=== PATIENT | female | born 1995 | race Caucasian/White ===

== ENCOUNTER 2017-03-05 10:08 | Emergency (ER) | payer SELFPAY ==
[~2017-03-05] VITALS: Ht 162.6 cm; Wt 59.0 kg
[~2017-03-05 10:08] MED LIST: HYDR-2766 PO; flexeril
[2017-03-05 10:20] VITALS: BP 113/64
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
[2017-03-05 11:13] LABS: BILIRUBIN,URINE NEGATIVE (NEG); GLUCOSE,URINE NEGATIVE (NEG); NITRITE,URINE NEGATIVE (NEG); PH,URINE 7.5; PROTEIN,URINE NEGATIVE (NEG-TRACE)
[2017-03-05 11:17] LABS: NEG OBC UR NEG; POS OBC UR POS
[2017-03-05 11:18] LABS: SQUAMOUS EPITHELIAL CELL,UR MANY /LPF
[2017-03-05 11:19] LABS: BACTERIA,URINE MANY /HPF (0-FEW); RBC,URINE OCC /HPF (0-2); WBC,URINE OCC /HPF (0-4)
[2017-03-05] MEDS ORDERED: CYCL10TA2 PO (11:42)
== END 2017-03-05 11:47 | disposition home or self-care (01) ==
LOC: ER 10:08
DX: M54.9 Dorsalgia, unspecified (principal)
CPT/HCPCS: 81001; 81025; 87086; 99284

== ENCOUNTER 2020-03-06 18:57 | Emergency (ER) | payer SELFPAY ==
[~2020-03-06] VITALS: Ht 162.6 cm; Wt 72.7 kg
[~2020-03-06 18:57] MED LIST changes: +CYCL10TA2 PO; -HYDR-2766 PO; +HYDR-2769 PO
[2020-03-06 20:10] LABS: BASO # 0.1 x10^3/uL (0.0-0.2); BASO % 1 % (0-3); EOS % 0 % (0-3); HEMATOCRIT 40.8 % (36.0-47.0); HEMOGLOBIN 14.1 g/dL (12.0-15.5); LYMPH # 2.3 x10^3/uL (1.0-4.8); LYMPH % 17 % (24-48); MEAN CORPUSCULAR HEMOGLOBIN 31 pg (25-35); MEAN CORPUSCULAR HGB CONC 35 g/dL (31-37); MEAN CORPUSCULAR VOLUME 91 fL (79-100); MONO # 1.4 x10^3/uL (0.0-1.1); MONO % 10 % (0-9); NEUT # 9.8 x10^3/uL (1.8-7.7); NEUT % 72 % (31-73); PLATELET COUNT 266 x10^3/uL (140-400); RED CELL DISTRIBUTION WIDTH 12.8 % (11.5-14.5); WHITE BLOOD COUNT 13.6 x10^3/uL (4.0-11.0)
[2020-03-06 20:12] LABS: CLARITY,URINE CLEAR; COLOR,URINE RED
[2020-03-06 20:17] LABS: CALCIUM 9.5 mg/dL (8.5-10.1); CREATININE 0.9 mg/dL (0.6-1.0); GFR 77.6; POTASSIUM 3.5 mmol/L (3.5-5.1)
[2020-03-06 20:17] LABS: AMPHETAMINE/METHAMPHETAMINE NEG (NEG); BARBITURATES NEG (NEG); BENZODIAZEPINES NEG (NEG); CANNABINOIDS POS (NEG); COCAINE NEG (NEG); METHADONE NEG (NEG); OPIATES NEG (NEG); PHENCYCLIDINE NEG (NEG)
[2020-03-06 20:22] LABS: AMORPHOUS SEDIMENT,UR PRESENT /HPF; BACTERIA,URINE MOD /HPF (0-FEW); TRICHOMONAS,URINE PRESENT
[2020-03-06 20:23] LABS: ALBUMIN/GLOBULIN RATIO 0.9 (1.0-1.7); TOTAL BILIRUBIN 0.8 mg/dL (0.2-1.0); TOTAL PROTEIN 8.3 g/dL (6.4-8.2)
--- NOTE | 2020-03-06 20:52 | RAD ---
PELVIS W/TV History: Reason: pelvic pain, hx of ovarian cysts / Spl. Instructions: / History: Comparison: None. Technique: Grayscale and color Doppler imaging of the pelvis was performed using transabdominal and transvaginal technique. Findings: The uterus measures 7.0 x 4.7 x 3.7 cm. Uterus has an unremarkable appearance. The endometrial stripe measures 9.5 mm. Right ovary measures 6.2 x 3.2 x 4.9 cm. Left ovary measures 4.0 x 2.7 x 2.5 cm. Normal Doppler flow to the ovaries. The ovaries lie adjacent to each other and potentially attached. Numerous bilateral follicles. Complicated right ovarian follicle measures 2.6 x 2.3 cm. Complicated left ovarian follicle measures 2.3 x 1.7 cm. Small pelvic free fluid. IMPRESSION: 1. Numerous ovarian follicles with complicated follicles bilaterally, may represent hemorrhagic follicles. 2. Small pelvic free fluid. Electronically signed by: Delmar Gibbons DO (03/06/2020 8:49 PM) [facility]
[2020-03-06] MEDS ORDERED: metroNIDAZOLE 500 MG TABLET PO ONE (21:15)
[2020-03-06] MEDS ORDERED: cefTRIAXone IV Push 1 GM VIAL. IVP ONE (21:15)
[2020-03-06] MEDS ORDERED: AZITHROMYCIN 250 MG TABLET. PO ONE (21:15)
[2020-03-06 21:16] VITALS: BP 115/70
--- NOTE | 2020-03-06 21:19 | PHYS DOC ---
Past Medical History Past Medical History: No Pertinent History (EVAN PERKINS APRN) Past Surgical History: No Surgical History (EVAN PERKINS APRN) Smoking Status: Current Every Day Smoker Additional Information: black and milds Alcohol Use: None Drug Use: None (EVAN PERKINS APRN) General Adult EDM: Chief Complaint: ABDOMINAL PAIN HPI: HPI: Patient is a 24 year old female with history of ovarian cyst presenting today complaining of 8 out of 10 sharp bilateral pelvic pain that has been going on for 3 days. Patient denies any concerns for STDs. Denies any unusual vaginal discharge, she states she started her cycle today. Denies any urgency, frequency or dysuria. Denies anything specifically exacerbating or relieving her pain. (EVAN PERKINS APRN) Review of Systems: Review of Systems: Constitutional: Denies fever or chills. [] GI: Reports pelvic pain, denies nausea, vomiting, bloody stools or diarrhea. [] : Denies dysuria. [] Musculoskeletal: Denies back pain or joint pain. [] Integument: Denies rash. [] Neurologic: Denies headache, focal weakness or sensory changes. [] Psychiatric: Denies depression or anxiety. [] (EVAN PERKINS APRN) Heart Score: Risk Factors: Risk Factors: DM, Current or recent (<one month) smoker, HTN, HLP, family history of CAD, obesity. Risk Scores: Score 0 - 3: 2.5% MACE over next 6 weeks - Discharge Home Score 4 - 6: 20.3% MACE over next 6 weeks - Admit for Clinical Observation Score 7 - 10: 72.7% MACE over next 6 weeks - Early Invasive Strategies (EVAN PERKINS APRN) Current Medications: Current Medications Medications (Trade) Dose Ordered Sig/Earl Start Time Stop Time Status Last Admin Dose Admin Azithromycin (Zithromax) 1,000 mg 1X ONCE 03/06/20 21:15 03/06/20 21:16 03/06/20 21:06 1,000 MG Ceftriaxone Sodium (Rocephin) 1 gm 1X ONCE 03/06/20 21:15 03/06/20 21:16 03/06/20 21:07 1 GM Metronidazole (Flagyl) 2,000 mg 1X ONCE 03/06/20 21:15 03/06/20 21:16 03/06/20 21:06 2,000 MG (EVAN PERKINS APRN) Allergies: Allergies: Allergies Coded Allergies Type Severity Reaction Last Updated Verified No Known Drug Allergies 03/01/15 No (EVAN PERKINS APRN) Physical Exam: PE: Constitutional: Well developed, well nourished, no acute distress, non-toxic appearance. [] Abdomen: Bowel sounds normal, soft, no tenderness, no masses, no pulsatile masses. [] Pelvic exam External pelvic appears normal, cervix is visualized, closed, no CMT, no adnexal tenderness, small amount of bright red blood in the vaginal vault consistent with menstrual cycle. Skin: Warm, dry, no erythema, no rash. [] Back: No tenderness, no CVA tenderness. [] Extremities: No tenderness, no cyanosis, no clubbing, ROM intact, no edema. [] Neurologic: Alert and oriented X 3, normal motor function, normal sensory function, no focal deficits noted. [] Psychologic: Affect normal, judgement normal, mood normal. [] (EVAN PERKINS APRN) Current Patient Data: Labs: Laboratory Tests Test 03/06/20 19:48 03/06/20 19:51 03/06/20 19:55 Urine Collection Type Unknown Urine Color Red Urine Clarity Clear Urine pH (<5.0-8.0) Urine Specific [place] 1.025 (1.000-1.030) Urine Protein mg/dL (NEG-TRACE) Urine Glucose (UA) mg/dL (NEG) Urine Ketones (Stick) mg/dL (NEG) Urine Blood (NEG) Urine Nitrite (NEG) Urine Bilirubin (NEG) Urine Urobilinogen Dipstick mg/dL (0.2 mg/dL) Urine Leukocyte Esterase (NEG) Urine RBC 11-20 /HPF (0-2) Urine WBC 11-20 /HPF (0-4) Urine Squamous Epithelial Cells Many /LPF Urine Amorphous Sediment Present /HPF Urine Bacteria Mod /HPF (0-FEW) Urine Mucus Marked /LPF Urine Trichomonas Present Urine Opiates Screen Neg (NEG) Urine Methadone Screen Neg (NEG) Urine Barbiturates Neg (NEG) Urine Phencyclidine Screen Neg (NEG) Urine Amphetamine/Methamphetamine Neg (NEG) Urine Benzodiazepines Screen Neg (NEG) Urine Cocaine Screen Neg (NEG) Urine Cannabinoids Screen Pos (NEG) Urine Ethyl Alcohol Neg (NEG) POC Urine HCG, Qualitative Hcg negative (Negative) White Blood Count 13.6 x10^3/uL (4.0-11.0) H Red Blood Count 4.50 x10^6/uL (3.50-5.40) Hemoglobin 14.1 g/dL (12.0-15.5) Hematocrit 40.8 % (36.0-47.0) Mean Corpuscular Volume 91 fL (79-100) Mean Corpuscular Hemoglobin 31 pg (25-35) Mean Corpuscular Hemoglobin Concent 35 g/dL (31-37) Red Cell Distribution Width 12.8 % (11.5-14.5) Platelet Count 266 x10^3/uL (140-400) Neutrophils (%) (Auto) 72 % (31-73) Lymphocytes (%) (Auto) 17 % (24-48) L Monocytes (%) (Auto) 10 % (0-9) H Eosinophils (%) (Auto) 0 % (0-3) Basophils (%) (Auto) 1 % (0-3) Neutrophils # (Auto) 9.8 x10^3/uL (1.8-7.7) H Lymphocytes # (Auto) 2.3 x10^3/uL (1.0-4.8) Monocytes # (Auto) 1.4 x10^3/uL (0.0-1.1) H Eosinophils # (Auto) 0.0 x10^3/uL (0.0-0.7) Basophils # (Auto) 0.1 x10^3/uL (0.0-0.2) Sodium Level 139 mmol/L (136-145) Potassium Level 3.5 mmol/L (3.5-5.1) Chloride Level 102 mmol/L (98-107) Carbon Dioxide Level 29 mmol/L (21-32) Anion Gap 8 (6-14) Blood Urea Nitrogen 9 mg/dL (7-20) Creatinine 0.9 mg/dL (0.6-1.0) Estimated GFR (Cockcroft-Gault) 77.6 BUN/Creatinine Ratio 10 (6-20) Glucose Level 85 mg/dL (70-99) Calcium Level 9.5 mg/dL (8.5-10.1) Total Bilirubin 0.8 mg/dL (0.2-1.0) Aspartate Amino Transferase (AST) 14 U/L (15-37) L Alanine Aminotransferase (ALT) 18 U/L (14-59) Alkaline Phosphatase 63 U/L (46-116) Total Protein 8.3 g/dL (6.4-8.2) H Albumin 4.0 g/dL (3.4-5.0) Albumin/Globulin Ratio 0.9 (1.0-1.7) L Lipase 123 U/L (73-393) Ethyl Alcohol Level < 10 mg/dL (0-10) Laboratory Tests 03/06/20 19:55 Laboratory Tests 03/06/20 19:55 Microbiology 03/06/20 Wet Prep - Final, Complete Vital Signs: Vital Signs Date Time Temp Pulse Resp B/P (MAP) Pulse Ox O2 Delivery O2 Flow Rate FiO2 03/06/20 19:45 99.8 102 20 118/81 (93) 99 Room Air 99.8 (EVAN PERKINS APRN) EKG: EKG: [] (EVAN PERKINS APRN) Radiology/Procedures: Radiology/Procedures: []PROCEDURE: PELVIS W/TV PELVIS W/TV History: Reason: pelvic pain, hx of ovarian cysts / Spl. Instructions: / History: Comparison: None. Technique: Grayscale and color Doppler imaging of the pelvis was performed using transabdominal and transvaginal technique. Findings: The uterus measures 7.0 x 4.7 x 3.7 cm. Uterus has an unremarkable appearance. The endometrial stripe measures 9.5 mm. Right ovary measures 6.2 x 3.2 x 4.9 cm. Left ovary measures 4.0 x 2.7 x 2.5 cm. Normal Doppler flow to the ovaries. The ovaries lie adjacent to each other and potentially attached. Numerous bilateral follicles. Complicated right ovarian follicle measures 2.6 x 2.3 cm. Complicated left ovarian follicle measures 2.3 x 1.7 cm. Small pelvic free fluid. IMPRESSION: 1. Numerous ovarian follicles with complicated follicles bilaterally, may represent hemorrhagic follicles. 2. Small pelvic free fluid. Electronically signed by: Delmar Gibbons DO (03/06/2020 8:49 PM) [facility] DICTATED and SIGNED BY: DELMAR GIBBONS DO DATE: 03/06/202048 (EVAN PERKINS APRN) Course & Med Decision Making: Course & Med Decision Making Pertinent Labs and Imaging studies reviewed. (See chart for details) This is a 24-year-old female patient presenting to the ED today complaining of pelvic pain for 3 days. Negative urine hCG, positive for trichomonas in urine. Was given standard STD treatment in the ED. CBC with a WBC of 13.6. Pelvic ultrasound noted for numerous ovarian follicles with complicated follicles bilaterally, may represent hemorrhagic follicles. Small pelvic free fluid. Patient was instructed to follow-up with [facility]. STD education provided as well as recommendation for the partner to be treated. (EVAN PERKINS APRN) Course & Med Decision Making I have reviewed the PA/DIRECTOR OF [employer]CHAND[employer]'s note and Plan of Care. I was available for consultation as needed during the patient's visit in the emergency department. I agree with the clinical impression, plans and disposition. (RADHA ROSARIO MD) Dragon Disclaimer: Dragon Disclaimer: This electronic medical record was generated, in whole or in part, using a voice recognition dictation system. (EVAN PERKINS APRN) Departure Departure Impression: Primary Impression: Trichomonas vaginitis Additional Impressions: Hemorrhagic cyst of right ovary Hemorrhagic cyst of left ovary Disposition: 01 DC HOME SELF CARE/HOMELESS Condition: STABLE Referrals: NO PCP (PCP) HAKAN POWELL MD followup in one week Patient Instructions: Ovarian Cyst, [id number], Trichomoniasis-Brief Additional Instructions: You tested positive for trichomonas, this is a sexually transmitted disease. Please ensure your partners get treated. Do not have sex for a week. You were noted to have possible hemorrhagic cyst on your ovaries. Please follow-up with an [facility] for this. EVAN PERKINS APRN Mar 06, 2020 21:19 RADHA ROSARIO MD Mar 06, 2020 22:28
[2020-03-10 19:08] LABS: GC PROBE Negative (Negative)
== END 2020-03-06 21:20 | disposition home or self-care (01) ==
LOC: ER 18:57
DX: A59.01 Trichomonal vulvovaginitis (principal); N83.202 Unspecified ovarian cyst, left side; N83.201 Unspecified ovarian cyst, right side; R10.2 Pelvic and perineal pain; F17.200 Nicotine dependence, unspecified, uncomplicated
CPT/HCPCS: 76830; 76856; 80053; 80307; 81001; 81025; 83690; 85025; 87491; 87591; 96374; 99284; G0480; J0696; Q0111